=== PATIENT | female | born 1965 | race Two or more races ===

== ENCOUNTER → 2020-11-24 | Outpatient (CLI) | payer SELFPAY ==
--- NOTE | 2020-11-24 15:09 | RAD ---
EXAM: Right wrist, 3 views. HISTORY: Fracture fixation. COMPARISON: 10/11/2020 FINDINGS: 3 views of the right wrist are obtained. There is internal fixation of anterior articular f racture of the distal radial metaphysis with a plate and multiple screws. There is also percutaneous pinning of a comminuted distal ulnar fracture. The alignment is unchanged compared to the prior study . There has been no significant interval healing. IMPRESSION: No significant change in a distal radial metaphyseal fracture status post internal fixati on or severely comminuted distal ulnar fracture status post percutaneous pinning. Electronically signed by: Ninfa Lockwood MD (11/24/2020 3:07 PM) [id number]
== END ==
LOC: RAD 14:48
PROVIDERS: ATTEND Orthopaedic Surgery
DX: S62.101A Fracture of unspecified carpal bone, right wrist, initial encounter for closed fracture (principal); X58.XXXA Exposure to other specified factors, initial encounter; Y93.89 Activity, other specified; Y92.89 Other specified places as the place of occurrence of the external cause; Y99.8 Other external cause status
CPT/HCPCS: 73110